=== PATIENT | female | born 1945 | race Two or more races ===

== ENCOUNTER 2025-01-06 13:18 | Emergency (ER) | payer BC, MEDICARE ==
[~2025-01-06] VITALS: Ht 167.6 cm; Wt 77.2 kg
[2025-01-06] MEDS: HYDROcodone-ACET 5/325MG TAB PO ONE (13:58)
--- NOTE | 2025-01-06 14:04 | ED.PDOC ---
Back pain HPI HPI Comments A 79 YEAR OLD FEMALE PRESENTS TO THE ED WITH A CHIEF COMPLAINT OF LOWER BACK PAIN THAT RADIATES DOWN HE RIGHT LEG S/P PICKING UP A COUPLE BOXES IN HER GARAGE WHILE CLEANING X1-2 DAYS AGO. PATIENT REPORTS A LONG STANDING HISTORY OF CHRONIC BACK PAIN WITH INTERMITTENT EPISODES DATING BACK MANY YEARS AGO. THE PATIENT DENIES ANY RECENT FALLS,BACK SURGERY, NUMBNESS, WEAKNESS, TINGLING SENSATION, URINARY/BOWEL INCONTINENCE. THERE ARE NO SIGNS AND SYMPTOMS OF CAUDA EQUINA. PATIENT DENIES FEVER, CHILLS, SHORTNESS OF BREATH, CHEST PAIN, ABDOMINAL PAIN, NAUSEA, VOMITING, HEADACHE, OR OTHER COMPLAINTS. NO OTHER SYMPTOMS OR MODIFYING FACTORS AT THIS TIME. PATIENT IS ALERT, ORIENTED X 4. PATIENT ARRIVES IN A WHE ELCHAIR DUE TO AN INABILITY TO BEAR WEIGHT OR AMBULATE SECONDARY TO THE BACK AND RIGHT LEG PAIN. Chief Complaint: Back Pain Time Seen by MD: 13:19 Reviewed Notes: Nurses Notes, Medications, Allergies Information Source: Patient Mode of Arrival: Wheelchair Timing: Days Duration: Since onset, Days Location of Back pain: (B) Lower back Radiates to: Posterior: (R) Buttocks, (R) Thigh Radiates to: Lateral: (R) Buttocks, (R) Thigh Severity: Moderate Prehospital treatment: None Quality: Aching, Cramping Onset: Bending, Lifing Circumstance: Other History of: Chronic Back Pain, None Modifying Factors: Movement, Walking, Nothing Associated signs and symptoms: None Past Medical History PAST MEDICAL HISTORY: Denies Past Medical History (Other): CHRONIC LOW BACK PAIN ON AND OFF Surgical History: Denies all surgeries HABITAT MANAGEMENT COORDINATOR History: No Pertinent HABITAT MANAGEMENT COORDINATOR History Family History Family History: Reviewed,noncontributory to illness, No family hx of Cancer, No family hx of DM, No family hx of Heart benjamin, No family hx of HTN, No family hx ofKidney benjamin, No family hx of Liver benjamin, No family hx of Lung benjamin, No family hx of Stroke Social History Smoker: Non-Smoker Alcohol: Denies ETOH Use Drugs: Denies Drug Use Lives In: Home Constitutional: denies: chills, diaphoresis, fatigue, fever, malaise, sweats, weakness, others EENTM: denies: blurred vision, double vision, ear bleeding, ear discharge, ear drainage, ear pain, ear ringing, eye pain, eye redness, hearing loss, mouth pain, mouth swelling, nasal discharge, nose bleeding, nose congestion, nose pain, photophobia, tearing, throat pain, throat swelling, voice changes, others Respiratory: denies: cough, hemoptysis, orthopnea, SOB at rest, shortness of breath, SOB with excertion, stridor, wheezing, others Cardiovascular: denies: chest pain, dizzy spells, diaphoresis, Dyspnea on exertion, edema, irregular heart beat, left arm pain, lightheadedness, palpitations, PND, syncope, others Gastrointestinal: denies: abdomen distended, abdominal pain, blood streaked bowels, constipated, diarrhea, dysphagia, difficulty swallowing, hematemesis, melena, nausea, poor appetite, poor fluid intake, rectal bleeding, rectal pain, vomiting, others Genitourinary: denies: abnormal vagina bleeding, burning, dyspareunia, dysuria, flank pain, frequency, hematuria, incontinence, pain, , vagina discharge, urgency, others Neurological: denies: dizziness, fainting, headache, left sided numbness, left sided weakness, numbness, paresthesia, pre-existing deficit, right sided numbness, right sided weakness, seizure, speech problems, tingling, tremors, weakness, others Musculoskeletal: reports: back pain, muscle pain; denies: gout, joint pain, joint swelling, muscle stiffness, neck pain, others Integumetry: denies: bruises, change in color, change in hair/nails, dryness, laceration, lesions, lumps, rash, wounds, others Allergic/Immunocompromised: denies: Difficulty Healing, Frequent Infections, Hives, Itching, others Hematologic/Lymphatic: denies: anemia, blood clots, easy bleeding, easy bruising, swollen glands, others Endocrine: denies: excessive hunger, excessive sweating, excessive thirst, excessive urination, flushing, intolerance to cold, intolerance to heat, unexplained weight gain, unexplained weight loss, others Psychiatric: denies: anxiety, bipolar disorder, depression, hopeless, panic disorder, schizophrenia, sleepless, suicidal, others All Other Systems: Reviewed and Negative Physical Exam General Appearance: No Apparent Distress, Normal HEENT: Normal ENT Inspection, PERRL/EOMI, Pharynx Normal, TMs Normal Neck: Full Range of Motion, Non-Tender, Normal, Normal Inspection Respiratory: Chest Non-Tender, Lungs Clear, No Accessory Muscle Use, No Respiratory Distress, Normal Breath Sounds Cardiovascular: No Edema, No JVD, No Murmur, No Gallop, Normal Peripheral Pulses, Regular Rate/Rhythm Breast Exam: Deferred Gastrointestinal: No Organomegaly, Non Tender, No Pulsatile Mass, Normal Bowel Sounds, Soft Genitalia: Deferred Pelvic: Deferred Rectal: Deferred Extremities: No calf tenderness, Normal capillary refill, Normal inspection, Normal range of motion, Non-tender, No pedal edema Musculoskeletal : Location: Bilateral Extremity Location: Back Apperance: Tenderness: Moderate (TENDERNESS AND MUSCLE SPASM ON LOW BACK, NO BONY TENDERNESS, SWELLING AND DEFORMITY, NO CVA TENDERNESS. 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 Was a procedure done?: No Back Pain Differential Dx Differential Diagnosis: DJD, Musculoskeletal Pain, Strain, Other (SPRAIN) X-Ray, Labs, Meds, VS Vital Signs Date Time Temp Pulse Resp B/P (MAP) Pulse Ox O2 Delivery O2 Flow Rate FiO2 01/06/25 13:19 98.4 89 16 134/83 97 98.4 Current Medications Medications (Trade) Dose Ordered Sig/Arik Route Start Time Stop Time Status Last Admin Acetaminophen/ Hydrocodone Bitart ([place]ndara 5/325MG Tab) 1 tab ONCE ONCE PO 01/06/25 13:45 01/06/25 13:46 DC 01/06/25 13:58 EXAM: CT LS SPINE WO CONTRAST HISTORY: LOWER BACK PAIN TO RIGHT LOWER LEG COMPARISON: None CTDIvol 28.94 mGy, DLP 899.61 mGy*cm. TECHNIQUE: Multiple axial CT images of the spine were obtained using bone algori thm. Axial and coronal reformatting was done. Bone and soft tissue windows were reviewed. FINDINGS: No evidence of definite acute fracture, spinal dislocation, or significant appearing acute subluxation is seen. Diffuse osteopenia. Diffuse advanced multilevel degenerative changes of the spine. Advanced degenerative changes at bilateral sacroiliac joints. Disc osteophyte hypertrophy creates moderate to severe canal stenosis at L2-L3, L3-L4 and L4-L5. IMPRESSION: No definite CT evidence of acute fracture or dislocation of the bony lumbar spine. X-Ray, Labs, Meds, VS Comment EXTERNAL MEDICAL RECORDS REVIEWED: [NONE] INDEPENDENT HISTORIANS: [NONE] SOCIAL DETERMINANTS OF HEALTH: [NONE] LABS ORDERED: NONE REVIEWED AND INTERPRETED RESULTS: NONE IMAGING ORDERED: CT L SPINE WO CON TREATMENTS ORDERED: NORCO 5/325MG PO PROCEDURES PERFORMED: NONE CRITICAL CARE TIME: NONE I HAVE DISCUSSED THE PATIENT WITH THE ATTENDING PHYSICIAN AND HE AGREES WITH THE PATIENT'S PLAN OF CARE AND DISPOSITION. RX: ULTRAM 50MG BASED ON THE PATIENT'S SYMPTOMS, THE PATIENT SOUGHT OUT ED CONSULT. ON MY PHYSICAL EXAMINATION REVEALED FINDINGS CONSISTENT WITH CHRONIC BACK PAIN FLARE UP. A CT OF THE LOWER LUMBAR SPINE WAS PERFORMED AND SHOWED TO ACUTE INJURY OR ABNORMALITIES. NO FURTHER IMAGING WAS INDICATED AT THIS TIME. THE PATIENT DENIES ANY NUMBNESS, WEAKNESS, TINGLING SENSATION, URINARY/BOWEL INCONTINENCE. THERE ARE NO SIGNS AND SYMPTOMS OF CAUDA EQUINA. THE PATIENT WAS ADVISED TO FOLLOW UP WITH PCP FOR THEIR CHRONIC LOWER BACK PAIN AND PAIN MANAGEMENT DOCTOR FOR PAIN CONTROL. PATIENT WAS GIVEN NORCO 5/325MG PO FOR PAIN MEDICATION. OVERALL PATIENT'S VITAL SIGNS ARE STABLE AND THE PATIENT WILL BE DISCHARGED HOME. Time of 1ST Reevaluation: 15:00 Reevaluation 1ST: Improved Patient Education/Counseling: Diagnosis, Treatment, Need For Follow Up Family Education/Counseling: Diagnosis, Treatment, Need For Follow Up, No Family Present Medical Screening: No EMC Exist At This Time SEPSIS Sepsis Screen Date sepsis recognized/suspect: Jan 06, 2025 Time Sepsis recognized/suspect: 1323 Recent Procedure: No On Antibiotic Therapy: No Respiratory Rate >20: No Heart Rate >90: No Temp<36 C (96.8 F) or >38.3 C: No SBP <90 or MAP <65 mmHG: No New Acute Mental Status Change: No Is the patient on CPAP, BIPAP,: No Physician Orders Ls Spine Wo Contrast (01/06/25 13:43) Vital Signs Date Time Temp Pulse Resp B/P (MAP) Pulse Ox O2 Delivery O2 Flow Rate FiO2 01/06/25 13:19 98.4 89 16 134/83 97 98.4 Medications Medications Dose Ordered Sig/Arik Route Start Time Stop Time Status Last Admin Dose Admin Acetaminophen/ Hydrocodone Bitart 1 tab ONCE ONCE PO 01/06/25 13:45 01/06/25 13:46 DC 01/06/25 13:58 Departure 1 Departure Time of Disposition: 15:00 Impression: Primary Impression: DDD (degenerative disc disease), lumbosacral Qualified Codes: M51.372 - Other intervertebral disc degeneration, lumbosacral region with discogenic back pain and lower extremity pain Additional Impression: Lumbar radiculopathy Disposition: HOME / SELF CARE / HOMELESS Condition: Stable Additional Instructions: FOLLOW-UP WITH PCP IN 1 TO 2 DAYS. TAKE MEDICATIONS PRESCRIBED. RETURN TO ED FOR ANY NEW OR WORSENING SYMPTOMS. e-Prescriptions Tramadol HCl (Tramadol HCl) 50 Mg Tab 50 MG PO BID, #20 TAB Prov: LILY LAGUNA 01/06/25 Discharged With: Self, Relative Critical Care Note Critical Care Time?: No Stability Stability form required: No I personally scribed for LILY LAGUNA ([email or web address]) on 01/06/25 at 14:04. Electronically submitted by Carolyne Ibrahim ([facility]). I personally scribed for LILY LAGUNA ([email or web address]) on 01/06/25 at 14:32. Electronically submitted by Carolyne Ibrahim ([facility]). LILY LAGUNA Jan 06, 2025 14:04
--- NOTE | 2025-01-06 14:26 | DVH ---
EXAM: CT LS SPINE WO CONTRAST HISTORY: LOWER BACK PAIN TO RIGHT LOWER LEG COMPARISON: None CTDIvol 28.94 mGy, DLP 899.61 mGy*cm. TECHNIQUE: Multiple axial CT images of the spine were obtained using bone algorithm. Axial and huber l reformatting was done. Bone and soft tissue windows were reviewed. FINDINGS: No evidence of definite acute fracture, spinal dislocation, or significant appearing acute subluxatio n is seen. Diffuse osteopenia. Diffuse advanced multilevel degenerative changes of the spine. Advanced degenerat kaylen changes at bilateral sacroiliac joints. Disc osteophyte hypertrophy creates moderate to severe canal stenosis at L2-L3, L3-L4 and L4-L5. IMPRESSION: No definite CT evidence of acute fracture or dislocation of the bony lumbar spine.
[2025-01-06] MEDS ORDERED: TRAM-626 PO (14:59)
[2025-01-06 15:16] VITALS: BP 131/64; PULSE 67; RESP 16; TEMP 97.9; O2SAT 94
== END 2025-01-06 15:19 | disposition home or self-care (01) ==
LOC: ER 13:22
DX: M51.370 Other intervertebral disc degeneration, lumbosacral region with discogenic back pain only (principal); G89.29 Other chronic pain; Z79.899 Other long term (current) drug therapy
CPT/HCPCS: 72131

== ENCOUNTER 2025-02-28 15:21 | Inpatient (IN) | payer MEDICARE, BC ==
[~2025-02-28] VITALS: Ht 167.6 cm; Wt 68.2 kg
[~2025-02-28 15:21] MED LIST: TRAM-626 PO
[2025-02-28 16:22] LABS: Urine Protein, UAD TRACE (Negative)
[2025-02-28 16:26] LABS: Hematocrit 37.0 % (36.0-46.0); Hemoglobin 12.5 g/dL (12.2-16.2); Mean Corpuscular Hemoglobin 31.7 pg (28.0-32.0); Mean Corpuscular Volume 93.6 fL (80.0-100.0); Nucleated Red Blood Cells % 0.1 %
[2025-02-28 16:46] LABS: Alanine Aminotransferase 22 U/L (7-40); Albumin 4.3 g/dL (3.2-4.8); Alkaline Phosphatase 87 U/L (46-116); Anion Gap 10 (5-15); BUN/Creatinine Ratio 14.8 (10.0-20.0); Bilirubin, Total 1.1 mg/dL (0.2-1.0); Blood Urea Nitrogen 16 mg/dL (9-23); Calcium 9.2 mg/dL (8.7-10.4); Carbon Dioxide 27 mmol/L (20-31); Chloride 96 mmol/L (98-107); Glucose 176 mg/dL (74-106); Potassium 3.8 mmol/L (3.5-5.1); Sodium 133 mmol/L (136-145); Total Protein 7.6 g/dL (5.7-8.2)
--- NOTE | 2025-02-28 16:49 | ECG ---
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
--- NOTE | 2025-02-28 16:54 | DVH ---
CLINICAL HISTORY: Mental status change. TECHNIQUE: Helical scanning was performed of the head from the skull base to the vertex. Multiplanar reconstructions were performed. This exam was performed according to our departmental dose optimizat ion program. Up-to-date CT equipment and radiation dose reduction techniques are utilized as appropri ate. CTDI 50.2 DLP 756 COMPARISON: None FINDINGS: There is no evidence for acute intracranial hemorrhage, acute ischemic changes, mass, mass effect, or extra-axial fluid collection. There is no hydrocephalus or midline shift. There is no effacement of the cerebral sulci and basal subarachnoid cisterns. The felipe-white matter differentiation is well lily ntained. The imaged paranasal sinuses are clear. IMPRESSION: NO ACUTE INTRACRANIAL ABNORMALITY SEEN.
[2025-02-28] MEDS: KETOROLAC TROMETH 30 MG/ML 1ML VIAL IM ONE (18:50)
--- NOTE | 2025-02-28 19:10 | ED.PDOC ---
Altered Mental Status HPI Comments Patient was brought in by son. Son was called by the patient's significant other. Patient has been acting funny today. Patient was recently being treated for urinary tract infection. Patient states she was having burning with urination last night and continued today. Son states that patient has been slow to respond. She is still answering questions appropriately but has a delayed response. They called primary care doctor and she was prescribed a new antibiotic but she has not started yet. Chief Complaint: ALOC Time Seen by MD: 15:25 Reviewed Notes: Nurses Notes Allergies: Coded Allergies: NO KNOWN ALLERGIES (Unverified , 02/28/25) Home Meds Active Scripts Tramadol HCl (Tramadol HCl) 50 Mg Tab, 50 MG PO BID, #20 TAB Prov:LILY LAGUNA 01/06/25 Information Source: Patient, Relative (Child) Mode of Arrival: Wheelchair Past Medical History PAST MEDICAL HISTORY: Denies Surgical History: Denies all surgeries SHALE PLANER OPERATOR History: No Pertinent SHALE PLANER OPERATOR History Family History Family History: Reviewed,noncontributory to illness, No family hx of Cancer, No family hx of DM, No family hx of Heart benjamin, No family hx of HTN, No family hx ofKidney benjamin, No family hx of Liver benjamin, No family hx of Lung benjamin, No family hx of Stroke Social History Smoker: Non-Smoker Alcohol: Denies ETOH Use Drugs: Denies Drug Use Lives In: Home Constitutional: denies: chills, diaphoresis, fatigue, fever, malaise, sweats, weakness, others EENTM: denies: blurred vision, double vision, ear bleeding, ear discharge, ear drainage, ear pain, ear ringing, eye pain, eye redness, hearing loss, mouth pain, mouth swelling, nasal discharge, nose bleeding, nose congestion, nose pain, photophobia, tearing, throat pain, throat swelling, voice changes, others Respiratory: denies: cough, hemoptysis, orthopnea, SOB at rest, shortness of breath, SOB with excertion, stridor, wheezing, others Cardiovascular: denies: chest pain, dizzy spells, diaphoresis, Dyspnea on exertion, edema, irregular heart beat, left arm pain, lightheadedness, palpitations, PND, syncope, others Gastrointestinal: denies: abdomen distended, abdominal pain, blood streaked bowels, constipated, diarrhea, dysphagia, difficulty swallowing, hematemesis, melena, nausea, poor appetite, poor fluid intake, rectal bleeding, rectal pain, vomiting, others Genitourinary: denies: abnormal vagina bleeding, burning, dyspareunia, dysuria, flank pain, frequency, hematuria, incontinence, pain, , vagina discharge, urgency, others Neurological: denies: dizziness, fainting, headache, left sided numbness, left sided weakness, numbness, paresthesia, pre-existing deficit, right sided numbness, right sided weakness, seizure, speech problems, tingling, tremors, weakness, others Musculoskeletal: denies: back pain, gout, joint pain, joint swelling, muscle pain, muscle stiffness, neck pain, others Integumetry: denies: bruises, change in color, change in hair/nails, dryness, laceration, lesions, lumps, rash, wounds, others Allergic/Immunocompromised: denies: Difficulty Healing, Frequent Infections, Hives, Itching, others Hematologic/Lymphatic: denies: anemia, blood clots, easy bleeding, easy bruising, swollen glands, others Physical Exam General Appearance: No Apparent Distress, Normal HEENT: Normal ENT Inspection, Pharynx Normal, TMs Normal Neck: Full Range of Motion, Non-Tender, Normal, Normal Inspection Respiratory: Chest Non-Tender, Lungs Clear, No Accessory Muscle Use, No Respiratory Distress, Normal Breath Sounds Cardiovascular: No Edema, No JVD, No Murmur, No Gallop, Normal Peripheral Puls es, Regular Rate/Rhythm Breast Exam: Deferred Gastrointestinal: No Organomegaly, Non Tender, No Pulsatile Mass, Normal Bowel Sounds, Soft Genitalia: Deferred Pelvic: Deferred Rectal: Deferred Extremities: No calf tenderness, Normal capillary refill, Normal inspection, Normal range of motion, Non-tender, No pedal edema Musculoskeletal : Apperance: Normal Neurologic: Alert, email engineer II-XII nml as Tested, No Motor Deficits, Normal Affect, Normal Mood, No Sensory Deficits Cerebellar Function: Normal Reflexes: Normal Skin: Dry, Normal Color, Warm Lymphatic: No Adenopathy Was a procedure done? Was a procedure done?: No Differential Diagnosis (ALOC) Differential Diagnosis: Dehydration, Hypoglycemia, Meningitis, Sepsis, Closed Head Injury, CVA X-Ray, Labs, Meds, VS Vital Signs Date Time Temp Pulse Resp B/P (MAP) Pulse Ox O2 Delivery O2 Flow Rate FiO2 02/28/25 18:52 Room Air* 0 21 02/28/25 17:47 98.8 89 16 98/55 (69) 98 98.8 02/28/25 15:38 124 02/28/25 15:24 97.7 123 17 98/63 93 97.7 Lab Test 02/28/25 16:56 02/28/25 16:00 02/28/25 15:51 Range/Units Lactic Acid Level 2.0 0.4-2.0 mmol/L White Blood Count 15.3 H 4.4-10.8 10^3/uL Red Blood Count 3.95 L 4.0-5.20 10^6/uL Hemoglobin 12.5 12.2-16.2 g/dL Hematocrit 37.0 36.0-46.0 % Mean Corpuscular Volume 93.6 80.0-100.0 fL Mean Corpuscular Hemoglobin 31.7 28.0-32.0 pg Mean Corpuscular Hemoglobin Concent 33.9 32.0-36.0 g/dL Red Cell Distribution Width 13.6 11.8-14.3 % Platelet Count 319 140-450 10^3/uL Mean Platelet Volume 7.8 6.9-10.8 fL Neutrophils (%) (Auto) 87.7 H 37.0-80.0 % Lymphocytes (%) (Auto) 6.5 L 10.0-50.0 % Monocytes (%) (Auto) 5.7 0.0-12.0 % Eosinophils (%) (Auto) 0.0 0.0-7.0 % Basophils (%) (Auto) 0.1 0.0-2.0 % Neutrophils # (Auto) 13.4 H 1.6-8.6 10 ^3/uL Lymphocytes # (Auto) 1.0 0.4-5.4 10 ^3/uL Monocytes # (Auto) 0.9 0-1.3 10 ^3/uL Eosinophils # (Auto) 0 0-0.8 10 ^3/uL Basophils # (Auto) 0 0-0.2 10 ^3/uL Nucleated Red Blood Cells 0.1 % Sodium Level 133 L 136-145 mmol/L Potassium Level 3.8 3.5-5.1 mmol/L Chloride Level 96 L 98-107 mmol/L Carbon Dioxide Level 27 20-31 mmol/L Anion Gap 10 5-15 Blood Urea Nitrogen 16 9-23 mg/dL Creatinine 1.08 H 0.550-1.02 mg/dL Glomerular Filtration Rate Calc 53 >90 mL/min BUN/Creatinine Ratio 14.8 10.0-20.0 Serum Glucose 176 H 74-106 mg/dL Calcium Level 9.2 8.7-10.4 mg/dL Total Bilirubin 1.1 H 0.2-1.0 mg/dL Aspartate Amino Transferase (AST) 21 13-40 U/L Alanine Aminotransferase (ALT) 22 7-40 U/L Alkaline Phosphatase 87 46-116 U/L Total Protein 7.6 5.7-8.2 g/dL Albumin 4.3 3.2-4.8 g/dL Urine Color Light-yellow Yellow Urine Clarity Turbid H Clear Urine pH 6.5 5.0-9.0 Urine Specific [place] 1.016 1.001-1.035 Urine Protein Trace H Negative Urine Ketones Negative Negative Urine Blood Trace H Negative /uL Urine Nitrite Negative Negative Urine Bilirubin Negative Negative Urine Urobilinogen Normal Negative mg/dL Urine Leukocyte Esterase 3+ Negative /uL Urine RBC 7 0 - 4 /hpf Urine Microscopic WBC 408 H 0-5 /HPF Urine Squamous Epithelial Cells Few <5 /hpf Urine Bacteria Few H None Seen /hpf Urine Glucose Trace Normal mg/dL Current Medications Medications (Trade) Dose Ordered Sig/Arik Route Start Time Stop Time Status Last Admin Ketorolac Tromethamine (Toradol Injection) 30 mg ONCE ONCE IM 02/28/25 18:45 02/28/25 18:46 DC 02/28/25 18:50 X-Ray, Labs, Meds, VS Comment Patient will be admitted for complicated urinary tract infection, failed outpatient treatment Patient be started on Rocephin 1 g Patient given Toradol IM for pain control Time of 1ST Reevaluation: 19:09 Reevaluation 1ST: Unchanged Patient Education/Counseling: Diagnosis, Treatment Family Education/Counseling: Diagnosis, Treatment SEPSIS Sepsis Screen Date sepsis recognized/suspect: Feb 28, 2025 Time Sepsis recognized/suspect: 1853 Recent Procedure: No On Antibiotic Therapy: No Respiratory Rate >20: No Heart Rate >90: No Temp<36 C (96.8 F) or >38.3 C: No SBP <90 or MAP <65 mmHG: No New Acute Mental Status Change: No Is the patient on CPAP, BIPAP,: No Physician Orders Head Without Contrast (02/28/25 15:51) Blood Culture (02/28/25 16:39) Vital Signs Date Time Temp Pulse Resp B/P (MAP) Pulse Ox O2 Delivery O2 Flow Rate FiO2 02/28/25 18:52 Room Air* 0 21 02/28/25 17:47 98.8 89 16 98/55 (69) 98 98.8 02/28/25 15:38 124 02/28/25 15:24 97.7 123 17 98/63 93 97.7 Laboratory Tests Test 02/28/25 16:00 02/28/25 16:56 White Blood Count 15.3 10^3/uL (4.4-10.8) H Lactic Acid Level 2.0 mmol/L (0.4-2.0) Medications Medications Dose Ordered Sig/Arik Route Start Time Stop Time Status Last Admin Dose Admin Ketorolac Tromethamine 30 mg ONCE ONCE IM 02/28/25 18:45 02/28/25 18:46 DC 02/28/25 18:50 Departure 1 Departure Time of Disposition: 19:09 Impression: Primary Impression: Altered mental status Qualified Codes: R40.0 - Somnolence Additional Impression: Urinary tract infection Qualified Codes: N30.01 - Acute cystitis with hematuria Disposition: ADMITTED INPATIENT Condition: Stable Discharged With: Self Critical Care Note Critical Care Time?: No Stability Stability form required: No Heart Score Heart Score: Heart Score Response (Comments) Value History N/A 0 EKG N/A 0 Age N/A 0 Risk Factors N/A 0 Troponin N/A 0 Total 0 PATRICIA WOODARD Feb 28, 2025 19:10
[2025-02-28] MEDS: SODIUM CHLORIDE 0.9% 500 ML IV ONE (22:00)
[2025-02-28] MEDS ORDERED: ACETAMINOPHEN 325 MG TAB PO PRN (22:00)
--- NOTE | 2025-02-28 22:12 | DVHHPRES ---
History of Present Illness Resident Creating Document: REINALDO AMBRIZ History of Present Illness Ms. Curry is a 79-year-old female with prior medical history of type 2 diabetes mellitus, hyperlipidemia, MIRIAN, cataracts, and ovarian cancer treated 20 years ago, who presents today accompanied by her son, Michael, with chief complaint of disorientation. According to the patient's son,the patient has been disoriented for the last week. He states she has been speaking slower and is harder for her to comprehend information than what is normal for this patient. The patient states she has also had decrease in appetite in the last week. Additionally, she refers that for the last 2 weeks had dysuria associated with a constant sharp stabbing pain in the her suprapubic area, non-radiating, 9/10 intensity, with mild relief with the use of hot pads. The patient was seen at the ED on 02/12/2025, where she was diagnosed with a UTI and discharged home on the same day with oral antibiotics (Nitrofurantoin). Due to persistence of symptoms and disorientation, she sought care at the ED. On evaluation in the ED, the patient was afebrile, tachycardic, and hypotensive. Initial labs are significant for WBCs 15.3 with neutrophilia, hyponatremia, creatinine 1.08, hyperglycemia, total bilirubin 1.1, and UA suggestive of UTI. Head CT shows no acute intracranial abnormality. Chest x-ray shows no acute abnormality. The patient start IV pain medication, IV antibiotics, and IV fluids. She was admitted for further workup and monitoring. Cardiovascular: hyperipidemia, Other (MIRIAN) Renal/: Other (History of ovarian cancer) Endocrine: Diabetes Past Surgical History: Tubal Ligation Family History: None Smoke: <1 pack per day (Occasional cigarette use quit 37 years ago) ALCOHOL: none Drugs: None Lives: with Family Domestic Violence: Neg Review of Systems Review of Systems Constitutional: Refers decreased appetite and malaise, Denies weight loss, fever and chills. HEENT: Denies changes in vision and hearing. Respiratory: Denies shortness of breath and cough Cardiovascular: Denies chest discomfort or palpitations GI: Denies abdominal distention, abdominal pain, diarrhea : Refers dysuria, urinary frequency, and suprapubic pain Musculoskeletal: Denies symptoms Skin: Denies rash and pruritus. Neurological: denies dizziness headache vision or hearing problems Allergies: Coded Allergies: NO KNOWN ALLERGIES (Unverified , 02/28/25) Medications Current Medications Medications Dose Ordered Sig/Arik Route Start Time Stop Time Status Last Admin Dose Admin Acetaminophen 325 mg Q4HP PRN PO 02/28/25 22:00 Enoxaparin Sodium 40 mg DAILY SC 03/01/25 10:00 Cefepime HCl 50 ml @ 12.5 mls/hr Q12HR IV 03/01/25 10:00 Meropenem 50 ml @ 17 mls/hr Q8HR IV 03/01/25 06:00 UNV Exam Vital Signs Vital Signs Date Time Temp Pulse Resp B/P (MAP) Pulse Ox O2 Delivery O2 Flow Rate FiO2 02/28/25 18:52 Room Air* 0 21 02/28/25 17:47 98.8 89 16 98/55 (69) 98 98.8 Exam General: The patient alert and oriented in person, place, not in time. Patient following commands HEENT: Normocephalic, atraumatic, normal reactive pupils, EOM intact, pink conjunctiva, pink dry mucous membrane Respiratory/pulmonary: Bilateral chest expansion, no pain on palpation of chest wall, clear lungs bilaterally, vesicular murmurs present in almost all lung martinez, no associated crackles or wheezes. Cardiovascular: Normal RRR, normal S1 and S2, no murmurs Abdomen: Abdomen nondistended, normal bowel sounds, soft, pain on palpation of suprapubic region, no palpable masses. Extremities: No deformities, there is no peripheral edema present at the lower extremities, normal pulses Skin: No rashes or pruritus, there is no sacral edema present at this time. Neurological: Intact cranial nerves with no focal neurologic deficits Labs/Xrays Labs Test 02/28/25 16:56 02/28/25 16:00 02/28/25 15:51 Range/Units Lactic Acid Level 2.0 0.4-2.0 mmol/L White Blood Count 15.3 H 4.4-10.8 10^3/uL Red Blood Count 3.95 L 4.0-5.20 10^6/uL Hemoglobin 12.5 12.2-16.2 g/dL Hematocrit 37.0 36.0-46.0 % Mean Corpuscular Volume 93.6 80.0-100.0 fL Mean Corpuscular Hemoglobin 31.7 28.0-32.0 pg Mean Corpuscular Hemoglobin Concent 33.9 32.0-36.0 g/dL Red Cell Distribution Width 13.6 11.8-14.3 % Platelet Count 319 140-450 10^3/uL Mean Platelet Volume 7.8 6.9-10.8 fL Neutrophils (%) (Auto) 87.7 H 37.0-80.0 % Lymphocytes (%) (Auto) 6.5 L 10.0-50.0 % Monocytes (%) (Auto) 5.7 0.0-12.0 % Eosinophils (%) (Auto) 0.0 0.0-7.0 % Basophils (%) (Auto) 0.1 0.0-2.0 % Neutrophils # (Auto) 13.4 H 1.6-8.6 10 ^3/uL Lymphocytes # (Auto) 1.0 0.4-5.4 10 ^3/uL Monocytes # (Auto) 0.9 0-1.3 10 ^3/uL Eosinophils # (Auto) 0 0-0.8 10 ^3/uL Basophils # (Auto) 0 0-0.2 10 ^3/uL Nucleated Red Blood Cells 0.1 % Sodium Level 133 L 136-145 mmol/L Potassium Level 3.8 3.5-5.1 mmol/L Chloride Level 96 L 98-107 mmol/L Carbon Dioxide Level 27 20-31 mmol/L Anion Gap 10 5-15 Blood Urea Nitrogen 16 9-23 mg/dL Creatinine 1.08 H 0.550-1.02 mg/dL Glomerular Filtration Rate Calc 53 >90 mL/min BUN/Creatinine Ratio 14.8 10.0-20.0 Serum Glucose 176 H 74-106 mg/dL Calcium Level 9.2 8.7-10.4 mg/dL Total Bilirubin 1.1 H 0.2-1.0 mg/dL Aspartate Amino Transferase (AST) 21 13-40 U/L Alanine Aminotransferase (ALT) 22 7-40 U/L Alkaline Phosphatase 87 46-116 U/L Total Protein 7.6 5.7-8.2 g/dL Albumin 4.3 3.2-4.8 g/dL Urine Color Light-yellow Yellow Urine Clarity Turbid H Clear Urine pH 6.5 5.0-9.0 Urine Specific [place] 1.016 1.001-1.035 Urine Protein Trace H Negative Urine Ketones Negative Negative Urine Blood Trace H Negative /uL Urine Nitrite Negative Negative Urine Bilirubin Negative Negative Urine Urobilinogen Normal Negative mg/dL Urine Leukocyte Esterase 3+ Negative /uL Urine RBC 7 0 - 4 /hpf Urine Microscopic WBC 408 H 0-5 /HPF Urine Squamous Epithelial Cells Few <5 /hpf Urine Bacteria Few H None Seen /hpf Urine Glucose Trace Normal mg/dL SEPSIS Sepsis Screen Date sepsis recognized/suspect: Feb 28, 2025 Time Sepsis recognized/suspect: 1853 Recent Procedure: No On Antibiotic Therapy: No Respiratory Rate >20: No Heart Rate >90: No Temp<36 C (96.8 F) or >38.3 C: No SBP <90 or MAP <65 mmHG: No New Acute Mental Status Change: No Is the patient on CPAP, BIPAP,: No Physician Orders Head Without Contrast (02/28/25 15:51) Blood Culture (02/28/25 16:39) Magnesium (02/28/25 21:55) Urine Bacterial Culture (02/28/25 21:55) Phosphorus (02/28/25 21:55) Thyroid Stimulating Hormone (02/28/25 21:55) Vitamin B12 (02/28/25 21:55) Vitamin D, 25-Hydroxy (02/28/25 21:55) Admit (02/28/25 21:55) Allergies (02/28/25 21:55) Code Status (02/28/25 21:55) Acetaminophen Tablet (Tylenol Tablet) (02/28/25 22:00) Enoxaparin Sodium (Lovenox) (03/01/25 10:00) Fall Risk Precautions In Place QSHIFT (02/28/25 21:55) Complete Blood Count (03/01/25 04:00) Comprehensive Metabolic Panel (03/01/25 04:00) Condition: Stable (02/28/25 21:55) Bedside Commode (02/28/25 21:55) Stat Ekg For Chest Pain (02/28/25 21:55) Notify Md Of Changes From Base (02/28/25 21:55) Emergency Dysrhythmia Protocol (02/28/25 21:55) Rhythm Strips Once Every Shift (02/28/25 21:55) Sodium Chloride 0.9% (02/28/25 22:00) Hemoglobin A1c (02/28/25 21:59) Cefepime 1gm/50ml (Maxipime 1gm/50ml) (03/01/25 10:00) Chest Xray 1 View (02/28/25 22:05) Meropenem 1gm Ivpb (Merrem 1gm/50ml) (03/01/25 06:00) Electrocardigram (02/28/25 22:08) NS (02/28/25 22:15) Vital Signs Date Time Temp Pulse Resp B/P (MAP) Pulse Ox O2 Delivery O2 Flow Rate FiO2 02/28/25 18:52 Room Air* 0 21 02/28/25 17:47 98.8 89 16 98/55 (69) 98 98.8 02/28/25 15:38 124 02/28/25 15:24 97.7 123 17 98/63 93 97.7 Laboratory Tests Test 02/28/25 16:00 02/28/25 16:56 White Blood Count 15.3 10^3/uL (4.4-10.8) H Lactic Acid Level 2.0 mmol/L (0.4-2.0) Medications Medications Dose Ordered Sig/Arik Route Start Time Stop Time Status Last Admin Dose Admin Ceftriaxone Sodium 50 ml @ 100 mls/hr ONCE ONCE IV 02/28/25 19:15 02/28/25 19:44 DC 02/28/25 19:53 100 MLS/HR Ketorolac Tromethamine 30 mg ONCE ONCE IM 02/28/25 18:45 02/28/25 18:46 DC 02/28/25 18:50 30 MG Assessment/Plan Assessment/Plan Assessment and Plan: Sepsis secondary to complicated UTI Dehydration secondary to above - Ceftriaxone 1 g IV once - Meropenem 1 g IV q.8 hours - NS 500 cc bolus once - NS maintenance fluids 75 cc/hour - Urine culture and blood cultures have been ordered - Ketorolac 30 mg IM once - Acetaminophen 325 mg p.o. q.4 hours PRN Possible DREW on CKD likely due to VMN/hemodynamically mediated - IV fluids - Avoid nephrotoxic drugs - Monitor renal function Mild hyponatremia, likely due to hypovolemia - Monitor sodium levels Type 2 diabetes mellitus, HB A1c 6.1 - Mild SSI - Accu-Cheks - Consistent Carbohydrate diet Hyperlipidemia History of ovarian cancer s/p treatment years ago Diet: Consistent carbohydrate DVT prophylaxis: Enoxaparin 40 mg SC daily GI prophylaxis: Not indicated Case discussed with Dr. Dunn Goals of care discussed with the patient and her son, Michael, for over 25 minutes. Full code. Plan discussed with: Patient, Son, Other (Nurses) My Orders Orders - REINALDO AMBRIZ RESIDENT Procedure Category Date Status Time Magnesium LAB 02/28/25 In Process 21:55 Urine Bacterial LADONNA 02/28/25 In Process Culture 21:55 Phosphorus LAB 02/28/25 In Process 21:55 Thyroid Stimulating LAB 02/28/25 In Process Hormone 21:55 Vitamin B12 LAB 02/28/25 In Process 21:55 Vitamin D, 25-Hydroxy LAB 02/28/25 In Process 21:55 Admit ADMIT 02/28/25 Transmitted 21:55 Allergies NAT 02/28/25 In Process 21:55 Code Status CODE 02/28/25 Transmitted 21:55 Acetaminophen Tablet PHA 02/28/25 In Process (Tylenol Tablet) 22:00 Enoxaparin Sodium PHA 03/01/25 In Process (Lovenox) 10:00 Fall Risk Precautions NAT 02/28/[address] 21:55 Complete Blood Count LAB 03/01/25 Verified 04:00 Comprehensive LAB 03/01/25 Verified Metabolic Panel 04:00 Condition: Stable NAT 02/28/25 In Process 21:55 Bedside Commode NAT 02/28/25 In Process 21:55 Stat Ekg For Chest NAT 02/28/25 In Process Pain 21:55 Notify Md Of Changes [facility] 02/28/25 In Process From Base 21:55 Emergency Dysrhythmia NAT 02/28/25 In Process Protocol 21:55 Rhythm Strips Once NAT 02/28/25 In Process Every Shift 21:55 Sodium Chloride 0.9% PHA 02/28/25 In Process 22:00 Hemoglobin A1c LAB 02/28/25 In Process 21:59 Cefepime 1gm/50ml PHA 03/01/25 In Process (Maxipime 1gm/50ml) 10:00 Chest Xray 1 View XY 02/28/25 Logged 22:05 Date of Service: Feb 28, 2025 Billing Provider: TERRANCE CHAMBERS MD Common Visit Codes: [id number] INP/OBS CARE (HIGH) Secondary Visit Codes: [id number] CARE PLAN 30 MINUTES AMBRIZ,[place] RESIDENT Feb 28, 2025 22:12 JITENDRA ESCOBAR RESIDENT Mar 01, 2025 04:25
--- NOTE | 2025-02-28 22:43 | DVH ---
CHEST RADIOGRAPH Indication: Possible Aspiration Technique: Single frontal view of the chest was obtained Comparison: None FINDINGS/IMPRESSION: The lungs are clear. The cardiomediastinal silhouette is unremarkable. No pleural effusion or pneumo thorax. No acute osseous abnormality.
[2025-02-28 23:23] LABS: Magnesium 1.8 mg/dL (1.6-2.6)
[2025-02-28] MEDS: SODIUM CHLORIDE 0.9% 1,000 ML IV SCH (23:49)
[2025-03-01] MEDS: HYDROcodone-ACET 5/325MG TAB PO ONE (02:46)
[2025-03-01] MEDS ORDERED: DEXTROSE (50%) 50ML SYRG IV PRN (03:15)
[2025-03-01 05:00] VITALS: BP 112/66; PULSE 77; RESP 19; TEMP 98.4; O2SAT 93
[2025-03-01] MEDS: ACCU-CHEK COMFORT CURVE STRIP VI SCH (06:18)
[2025-03-01] MEDS: InsuLIN REG 1unit/0.01ml Soln (100units/ml) SC SCH (06:19)
[2025-03-01 06:49] LABS: Hematocrit 31.4 % (36.0-46.0); Hemoglobin 10.6 g/dL (12.2-16.2); Mean Corpuscular Hemoglobin 31.5 pg (28.0-32.0); Mean Corpuscular Volume 93.6 fL (80.0-100.0); Nucleated Red Blood Cells % 0.0 %
[2025-03-01 07:17] LABS: Alanine Aminotransferase 18 U/L (7-40); Albumin 3.4 g/dL (3.2-4.8); Alkaline Phosphatase 69 U/L (46-116); Anion Gap 9 (5-15); BUN/Creatinine Ratio 16.2 (10.0-20.0); Blood Urea Nitrogen 16 mg/dL (9-23); Carbon Dioxide 25 mmol/L (20-31); Chloride 101 mmol/L (98-107); Potassium 3.6 mmol/L (3.5-5.1); Total Protein 6.0 g/dL (5.7-8.2); Triglycerides 83 mg/dL (< 150)
[2025-03-01 07:18] LABS: Bilirubin, Total 0.7 mg/dL (0.2-1.0); Cholesterol 125 mg/dL (< 200); HDL Cholesterol 49 mg/dL (40-59)
[2025-03-01 07:19] LABS: Calcium 8.6 mg/dL (8.7-10.4); Glucose 107 mg/dL (74-106); Sodium 135 mmol/L (136-145)
[2025-03-01 08:00] VITALS: PULSE 75; RESP 16; O2SAT 97
[2025-03-01 08:39] VITALS: BP 124/73; PULSE 75; RESP 16; TEMP 98.1; O2SAT 97
[2025-03-01] MEDS: ENOXAPARIN SOD 40 MG/0.4 ML SYRINGE SC SCH (09:23)
[2025-03-01] MEDS: MEROPENEM 1GM IVPB 50 ML IV SCH (09:23)
[2025-03-01] MEDS ORDERED: CEFEPIME 1GM/50ML 50 ML IV SCH (10:00)
--- NOTE | 2025-03-01 11:07 | DVHPNRES ---
Progress Note Date Seen: Mar 01, 2025 Resident Creating Document: SOLO PICKARD RESIDENT Medical Necessity Reason Pt with a Central, PICC or Fol: No Subjective Review of Systems Ms. Curry is a 79-year-old female with prior medical history of type 2 diabetes mellitus, hyperlipidemia, MIRIAN, cataracts, and ovarian cancer treated 20 years ago, who presents today accompanied by her son, Michael, with chief complaint of disorientation. According to the patient's son,the patient has been disoriented for the last week. He states she has been speaking slower and is harder for her to comprehend information than what is normal for this patient. The patient states she has also had decrease in appetite in the last week. Additionally, she refers that for the last 2 weeks had dysuria associated with a constant sharp stabbing pain in the her suprapubic area, non-radiating, 9/10 intensity, with mild relief with the use of hot pads. The patient was seen at the ED on 02/12/2025, where she was diagnosed with a UTI and discharged home on the same day with oral antibiotics (Nitrofurantoin). Due to persistence of symptoms and disorientation, she sought care at the ED. On evaluation in the ED, the patient was afebrile, tachycardic, and hypotensive. Initial labs are significant for WBCs 15.3 with neutrophilia, hyponatremia, creatinine 1.08, hyperglycemia, total bilirubin 1.1, and UA suggestive of UTI. Head CT shows no acute intracranial abnormality. Chest x-ray shows no acute abnormality. The patient start IV pain medication, IV antibiotics, and IV fluids. She was admitted for further workup and monitoring. Cardiovascular: hyperipidemia, Other (MRIIAN) Renal/: Other (History of ovarian cancer) Endocrine: Diabetes Past Surgical History: Tubal Ligation Family History: None Personal history Smoke: <1 pack per day (Occasional cigarette use quit 37 years ago), ALCOHOL: none, Drugs: None, Lives: with Family, Domestic Violence: Neg Patient was seen today at bedside, labs and chart reviewed. Patient reports feeling better today, patient reported poor appetite. Pain improved. WBC trending down, pending uterine culture. Patient on meropenem IV. Objective vital signs Vital Sign Date Time Temp Pulse Resp B/P (MAP) Pulse Ox O2 Delivery O2 Flow Rate FiO2 03/01/25 08:39 98.1 75 16 124/73 (90) 97 98.1 03/01/25 01:28 Room Air* 0 21 Total Intake and Output 02/28/25 02/28/25 03/01/25 15:00 23:00 07:00 Intake Total 600 ml Balance 600 ml medications Current Medications Medications Dose Ordered Sig/Arik Route Start Time Stop Time Status Last Admin Dose Admin Acetaminophen 325 mg Q4HP PRN PO 02/28/25 22:00 Enoxaparin Sodium 40 mg DAILY SC 03/01/25 10:00 03/01/25 09:23 40 MG Cefepime HCl 50 ml @ 12.5 mls/hr Q12HR IV 03/01/25 10:00 Hold Meropenem 50 ml @ 17 mls/hr Q8H IV 03/01/25 09:00 03/01/25 09:23 17 MLS/HR Sodium Chloride 1,000 ml @ 75 mls/hr [id number] IV 02/28/25 22:15 02/28/25 23:49 75 MLS/HR Diagnostic Test (Pha) 1 strip ACHS 03/01/25 07:00 03/01/25 06:18 1 STRIP Insulin Human Regular ACHS SC 03/01/25 07:00 Dextrose 50 ml UD PRN IV 03/01/25 03:15 Examination General examination- awake, alert, current meds HEENT- PEERLA, no acute nasal discharge Cardiovascular- S1-S2 audible, rate and rhythm regular, no murmur Respiratory- CTAB, no wheeze or rhonchi Gastrointestinal-mild lower abdominal tenderness+, bowel sound+. Nondistended Renal system-bilateral renal angle tenderness+ Musculoskeletal-no acute joint swelling or tenderness or redness Lower extremity- no leg edema Neurological- cranial nerves intact, no acute dysarthria or dysphagia Psychiatry- denies depression or SI or HI Skin- no acute rash or purpura laboratory and microbiology Laboratory Tests 03/01/25 06:07 Test 03/01/25 06:07 Range/Units Serum Glucose 107 H 74-106 mg/dL Problem List/Assessment/Plan Problem List/Assessment/Plan Assessment and plan # acute metabolic encephalopathy likely due to sepsis #Sepsis secondary to complicated UTI #Dehydration secondary to above -continue IV normal saline as per - Meropenem 1 g IV q.8 hours -pending blood culture, urine culture Monitor vital #Possible DREW on CKD likely due to VMN/hemodynamically mediated - IV fluids - Avoid nephrotoxic drugs - Monitor renal function #Mild hyponatremia, likely due to hypovolemia - Monitor sodium levels #Type 2 diabetes mellitus, HB A1c 6.1 - Mild SSI - Accu-Cheks - Consistent Carbohydrate diet #Hyperlipidemia -diet controlled #History of ovarian cancer s/p treatment 20 years ago -follow up outpatient with the primary care physician Goals of care, Code status full code; discussed with >15 minutes PUD prophylaxis: Pantoprazole DVT prophylaxis: Lovenox Plan discussed with Dr. Gtz , nursing staff, Total time spent on patient evaluation, chart review, assessment and plan, discussion discussion >35 minutes Plan discussed with: Patient, Other (RN) My Orders My Orders Orders - SOLO PICKARD Procedure Category Date Status Time Sodium Chloride 0.9% PHA 03/01/25 Logged 10:45 Billing Provider: CONCEPCION GTZ MD Common Visit Codes: [id number] INP/OBS CARE(HIGH) SOLO PICKARD Mar 01, 2025 11:07 CONCEPCION GTZ MD Mar 01, 2025 22:14
[2025-03-01 13:00] VITALS: BP 120/66; PULSE 70; RESP 16; TEMP 98; O2SAT 97
[2025-03-01] MEDS: SODIUM CHLORIDE 0.9% 1,000 ML IV ONE ×2 (13:15→17:11)
[2025-03-01 16:54] VITALS: BP 117/77; PULSE 83; RESP 17; TEMP 97.9; O2SAT 97
[2025-03-01] MEDS: HYDROcodone-ACET 5/325MG TAB PO PRN (17:11)
[2025-03-01 21:00] VITALS: BP_SYST 110; BP_SYST 95; BP_DIAS 52; BP_DIAS 57; PULSE 79; PULSE 84; RESP 16; RESP 18; TEMP 97.8; TEMP 98.2; O2SAT 94; O2SAT 95
[2025-03-02] VITALS (7 sets, daily range): BP systolic 130–155; BP diastolic 58–85; PULSE 70–87; RESP 16–18; TEMP 97.7–98; O2SAT 95–97
[2025-03-02] MEDS: PANTOPRAZOLE 40 MG TAB PO SCH (05:03)
[2025-03-02 06:48] LABS: Hematocrit 30.6 % (36.0-46.0); Hemoglobin 10.4 g/dL (12.2-16.2); Mean Corpuscular Hemoglobin 31.8 pg (28.0-32.0); Mean Corpuscular Volume 93.4 fL (80.0-100.0); Nucleated Red Blood Cells % 0.1 %
[2025-03-02 07:02] LABS: Alanine Aminotransferase 19 U/L (7-40); Albumin 3.3 g/dL (3.2-4.8); Alkaline Phosphatase 62 U/L (46-116); Anion Gap 9 (5-15); BUN/Creatinine Ratio 12.0 (10.0-20.0); Blood Urea Nitrogen 9 mg/dL (9-23); Carbon Dioxide 25 mmol/L (20-31); Magnesium 1.9 mg/dL (1.6-2.6); Sodium 141 mmol/L (136-145); Total Protein 5.9 g/dL (5.7-8.2)
[2025-03-02 07:03] LABS: Bilirubin, Total 0.3 mg/dL (0.2-1.0)
[2025-03-02 07:09] LABS: Calcium 8.2 mg/dL (8.7-10.4); Chloride 107 mmol/L (98-107); Glucose 110 mg/dL (74-106); Potassium 3.5 mmol/L (3.5-5.1)
--- NOTE | 2025-03-02 11:57 | DVHPNRES ---
Progress Note Date Seen: Mar 02, 2025 Resident Creating Document: SOLO PICKARD RESIDENT Medical Necessity Reason Pt with a Central, PICC or Fol: No Subjective Review of Systems Ms. Curry is a 79-year-old female with prior medical history of type 2 diabetes mellitus, hyperlipidemia, MIRIAN, cataracts, and ovarian cancer treated 20 years ago, who presents today accompanied by her son, Michael, with chief complaint of disorientation. According to the patient's son,the patient has been disoriented for the last week. He states she has been speaking slower and is harder for her to comprehend information than what is normal for this patient. The patient states she has also had decrease in appetite in the last week. Additionally, she refers that for the last 2 weeks had dysuria associated with a constant sharp stabbing pain in the her suprapubic area, non-radiating, 9/10 intensity, with mild relief with the use of hot pads. The patient was seen at the ED on 02/12/2025, where she was diagnosed with a UTI and discharged home on the same day with oral antibiotics (Nitrofurantoin). Due to persistence of symptoms and disorientation, she sought care at the ED. On evaluation in the ED, the patient was afebrile, tachycardic, and hypotensive. Initial labs are significant for WBCs 15.3 with neutrophilia, hyponatremia, creatinine 1.08, hyperglycemia, total bilirubin 1.1, and UA suggestive of UTI. Head CT shows no acute intracranial abnormality. Chest x-ray shows no acute abnormality. The patient start IV pain medication, IV antibiotics, and IV fluids. She was admitted for further workup and monitoring. Cardiovascular: hyperipidemia, Other (MIRIAN) Renal/: Other (History of ovarian cancer) Endocrine: Diabetes Past Surgical History: Tubal Ligation Family History: None Personal history Smoke: <1 pack per day (Occasional cigarette use quit 37 years ago), ALCOHOL: none, Drugs: None, Lives: with Family, Domestic Violence: Neg Patient was seen today at bedside, labs and chart reviewed. Patient had suprapubic distention, Bedside bladder scan revealed post voiding residual volume> 300, ordered Dumont's catheter. Urine culture mixed growth. Continue current medication. Leukocytosis resolved. Objective vital signs Vital Sign Date Time Temp Pulse Resp B/P (MAP) Pulse Ox O2 Delivery O2 Flow Rate FiO2 10/2/25 08:47 97.9 71 16 139/70 (93) 97 97.9 03/02/25 08:00 Room Air* 0 21 Total Intake and Output 03/01/25 03/01/25 03/02/25 15:00 23:00 07:00 Intake Total 50 ml 450 ml 1350 ml Output Total 750 ml Balance 50 ml 450 ml 600 ml medications Current Medications Medications Dose Ordered Sig/Arik Route Start Time Stop Time Status Last Admin Dose Admin Acetaminophen 325 mg Q4HP PRN PO 02/28/25 22:00 Enoxaparin Sodium 40 mg DAILY SC 03/01/25 10:00 03/02/25 09:27 40 MG Meropenem 50 ml @ 17 mls/hr Q8H IV 03/01/25 09:00 03/02/25 09:27 17 MLS/HR Sodium Chloride 1,000 ml @ 75 mls/hr [id number] IV 02/28/25 22:15 03/02/25 01:57 75 MLS/HR Diagnostic Test (Pha) 1 strip ACHS 03/01/25 07:00 03/02/25 06:17 1 STRIP Insulin Human Regular ACHS SC 03/01/25 07:00 Dextrose 50 ml UD PRN IV 03/01/25 03:15 Pantoprazole Sodium 40 mg DAILY@0600 PO 03/02/25 06:00 03/02/25 05:03 40 MG Acetaminophen/ Hydrocodone Bitart 1 tab Q4HPRN PRN PO 03/01/25 15:30 03/02/25 09:28 1 TAB Examination General examination- awake, alert, current meds HEENT- PEERLA, no acute nasal discharge Cardiovascular- S1-S2 audible, rate and rhythm regular, no murmur Respiratory- CTAB, no wheeze or rhonchi Gastrointestinal-mild lower abdominal tenderness+, bowel sound+. Nondistended Renal system-bilateral renal angle tenderness+ Musculoskeletal-no acute joint swelling or tenderness or redness Lower extremity- no leg edema Neurological- cranial nerves intact, no acute dysarthria or dysphagia Psychiatry- denies depression or SI or HI Skin- no acute rash or purpura laboratory and microbiology Laboratory Tests 03/02/25 06:29 Test 03/02/25 06:29 Range/Units Serum Glucose 110 H 74-106 mg/dL Microbiology Date/Time Source Procedure Growth Status 02/28/25 16:50 Blood Blood Culture - Preliminary NO GROWTH AFTER 24 HOURS OF INCUBATION. Resulted 02/28/25 15:51 Voided Urine Urine Culture - Preliminary Resulted Problem List/Assessment/Plan Problem List/Assessment/Plan Assessment and plan # acute metabolic encephalopathy likely due to sepsis #Sepsis secondary to complicated UTI #Dehydration secondary to above -continue IV normal saline as per - Meropenem 1 g IV q.8 hours -pending blood culture, urine culture Monitor vital # DREW on CKD likely due to VMN/hemodynamically mediated - IV fluids - Avoid nephrotoxic drugs - Monitor renal function # acute retention of urine -bedside bladder scan revealed> 300 mL urine -ordered Dumont's catheter #Mild hyponatremia, likely due to hypovolemia - Monitor sodium levels #Type 2 diabetes mellitus, HB A1c 6.1 - Mild SSI - Accu-Cheks - Consistent Carbohydrate diet #Hyperlipidemia -diet controlled #History of ovarian cancer s/p treatment 20 years ago -follow up outpatient with the primary care physician Goals of care, Code status full code; discussed with >15 minutes PUD prophylaxis: Pantoprazole DVT prophylaxis: Lovenox Plan discussed with Dr. Case , nursing staff, Total time spent on patient evaluation, chart review, assessment and plan, discussion discussion >35 minutes Plan discussed with: Patient, Other (RN) My Orders My Orders Orders - SOLO PICKARD Procedure Category Date Status Time Hydrocodone-Acet PHA 03/01/25 In Process 5/325mg Tab ([place] 15:30 Date of Service: Mar 02, 2025 Billing Provider: CONCEPCION CASE MD Common Visit Codes: [id number] INP/OBS CARE(HIGH) SOLO PICKARD Mar 02, 2025 11:57 CONCEPCION CASE MD Mar 03, 2025 19:54
[2025-03-03 01:00] VITALS: BP 147/78; PULSE 79; RESP 18; TEMP 98.1; O2SAT 94
[2025-03-03 04:58] LABS: Hematocrit 34.0 % (36.0-46.0); Hemoglobin 11.4 g/dL (12.2-16.2); Mean Corpuscular Hemoglobin 31.5 pg (28.0-32.0); Mean Corpuscular Volume 93.6 fL (80.0-100.0); Nucleated Red Blood Cells % 0.0 %
[2025-03-03 05:00] VITALS: BP 146/73; PULSE 66; RESP 18; TEMP 98; O2SAT 96
[2025-03-03 05:23] LABS: Alanine Aminotransferase 16 U/L (7-40); Albumin 3.7 g/dL (3.2-4.8); Alkaline Phosphatase 67 U/L (46-116); Anion Gap 9 (5-15); BUN/Creatinine Ratio 6.5 (10.0-20.0); Blood Urea Nitrogen < 5 mg/dL (9-23); Calcium 9.0 mg/dL (8.7-10.4); Carbon Dioxide 27 mmol/L (20-31); Chloride 104 mmol/L (98-107); Glucose 106 mg/dL (74-106); Magnesium 2.0 mg/dL (1.6-2.6); Potassium 3.7 mmol/L (3.5-5.1); Sodium 140 mmol/L (136-145); Total Protein 6.6 g/dL (5.7-8.2)
[2025-03-03 05:24] LABS: Bilirubin, Total 0.4 mg/dL (0.2-1.0)
[2025-03-03 08:00] VITALS: PULSE 67; RESP 18; O2SAT 97
[2025-03-03 09:00] VITALS: BP 149/85; PULSE 67; RESP 18; TEMP 98.2; O2SAT 97
[2025-03-03 13:00] VITALS: BP 156/79; PULSE 18; TEMP 97.2; O2SAT 96
--- NOTE | 2025-03-03 14:08 | DVHDSRES ---
Discharge Summary Date of Admission Resident Creating Document: SOLO PICKARD RESIDENT Feb 28, 2025 at 21:55 Date of Discharge: Mar 03, 2025 Admitting Diagnosis Acute metabolic encephalopathy, Sepsis due to UTI Labs/Diagnostic Data: Laboratory Results Test 03/03/25 10:43 03/03/25 04:30 03/01/25 11:02 03/01/25 06:07 POC Glucose 141 mg/dl (70-106) White Blood Count 5.8 10^3/uL (4.4-10.8) Red Blood Count 3.63 10^6/uL (4.0-5.20) Hemoglobin 11.4 g/dL (12.2-16.2) Hematocrit 34.0 % (36.0-46.0) Mean Corpuscular Volume 93.6 fL (80.0-100.0) Mean Corpuscular Hemoglobin 31.5 pg (28.0-32.0) Mean Corpuscular Hemoglobin Concent 33.6 g/dL (32.0-36.0) Red Cell Distribution Width 13.7 % (11.8-14.3) Platelet Count 295 10^3/uL (140-450) Mean Platelet Volume 7.3 fL (6.9-10.8) Neutrophils (%) (Auto) 61.5 % (37.0-80.0) Lymphocytes (%) (Auto) 26.8 % (10.0-50.0) Monocytes (%) (Auto) 10.0 % (0.0-12.0) Eosinophils (%) (Auto) 1.5 % (0.0-7.0) Basophils (%) (Auto) 0.2 % (0.0-2.0) Neutrophils # (Auto) 3.6 10 ^3/uL (1.6-8.6) Lymphocytes # (Auto) 1.6 10 ^3/uL (0.4-5.4) Monocytes # (Auto) 0.6 10 ^3/uL (0-1.3) Eosinophils # (Auto) 0.1 10 ^3/uL (0-0.8) Basophils # (Auto) 0 10 ^3/uL (0-0.2) Nucleated Red Blood Cells 0.0 % Sodium Level 140 mmol/L (136-145) Potassium Level 3.7 mmol/L (3.5-5.1) Chloride Level 104 mmol/L (98-107) Carbon Dioxide Level 27 mmol/L (20-31) Anion Gap 9 (5-15) Blood Urea Nitrogen < 5 mg/dL (9-23) Creatinine 0.77 mg/dL (0.550-1.02) Glomerular Filtration Rate Calc 79 mL/min (>90) BUN/Creatinine Ratio 6.5 (10.0-20.0) Serum Glucose 106 mg/dL (74-106) Calcium Level 9.0 mg/dL (8.7-10.4) Magnesium Level 2.0 mg/dL (1.6-2.6) Total Bilirubin 0.4 mg/dL (0.2-1.0) Aspartate Amino Transferase (AST) 14 U/L (13-40) Alanine Aminotransferase (ALT) 16 U/L (7-40) Alkaline Phosphatase 67 U/L (46-116) Total Protein 6.6 g/dL (5.7-8.2) Albumin 3.7 g/dL (3.2-4.8) Lactic Acid Level 1.0 mmol/L (0.4-2.0) Triglycerides Level 83 mg/dL (< 150) Cholesterol Level 125 mg/dL (< 200) LDL Cholesterol 64 mg/dL (< 100) HDL Cholesterol 49 mg/dL (40-59) Test 02/28/25 16:00 02/28/25 15:51 Hemoglobin A1c 6.1 % A1C (<5.7) Phosphorus Level 2.7 mg/dL (2.4-5.1) Vitamin B12 Level 277 pg/mL (211-911) Vitamin D 25-Hydroxy 29.0 ng/mL (30.0-100) Thyroid Stimulating Hormone (TSH) 0.76 uIU/mL (0.55-4.78) Urine Color Light-yellow (Yellow) Urine Clarity Turbid (Clear) Urine pH 6.5 (5.0-9.0) Urine Specific [place] 1.016 (1.001-1.035) Urine Protein Trace (Negative) Urine Ketones Negative (Negative) Urine Blood Trace /uL (Negative) Urine Nitrite Negative (Negative) Urine Bilirubin Negative (Negative) Urine Urobilinogen Normal mg/dL (Negative) Urine Leukocyte Esterase 3+ /uL (Negative) Urine RBC 7 /hpf (0 - 4) Urine Microscopic WBC 408 /HPF (0-5) Urine Squamous Epithelial Cells Few /hpf (<5) Urine Bacteria Few /hpf (None Seen) Urine Glucose Trace mg/dL (Normal) Other Laboratory Tests 03/03/25 04:30 Brief Hx & Hospital Course: Ms. Curry is a 79-year-old female with prior medical history of type 2 diabetes mellitus, hyperlipidemia, MIRIAN, cataracts, and ovarian cancer treated 20 years ago, who presents today accompanied by her son, Michael, with chief complaint of disorientation. According to the patient's son,the patient has been disoriented for the last week. He states she has been speaking slower and is harder for her to comprehend information than what is normal for this patient. The patient states she has also had decrease in appetite in the last week. Additionally, she refers that for the last 2 weeks had dysuria associated with a constant sharp stabbing pain in the her suprapubic area, non-radiating, 9/10 intensity, with mild relief with the use of hot pads. The patient was seen at the ED on 02/12/2025, where she was diagnosed with a UTI and discharged home on the same day with oral antibiotics (Nitrofurantoin). Due to persistence of symptoms and disorientation, she sought care at the ED. On evaluation in the ED, the patient was afebrile, tachycardic, and hypotensive. Initial labs are significant for WBCs 15.3 with neutrophilia, hyponatremia, creatinine 1.08, hyperglycemia, total bilirubin 1.1, and UA suggestive of UTI. Head CT shows no acute intracranial abnormality. Chest x-ray shows no acute abnormality. Patient was treated with the IV antibiotic meropenem, uterine culture more than 3 organisms, blood culture negative, patient's symptoms improved. Patient's hospital course was complicated by acute retention of uterine, status post Dumont's catheter. Before discharge patient has Dumont's catheter was removed and patient voided well, bedside bladder scan revealed only 1 mL of uterine. Patient is being discharged home with oral antibiotic Keflex 500 mg p.o. b.i.d. for 5 days, patient was advised to follow up with the primary care physician in 1 week, patient was also advised to follow up with the discharge clinic on Thursday03/06/2025. Patient was was advised to follow up with the urologist for further evaluation and care of retention of uterine. Patient was hemodynamically stable on discharge. Patient's meds were sent to the pharmacy electronically. Operations or Procedures [address] [address] Ph: [phone] DIAGNOSTIC IMAGING Diagnostic Imaging Report : [id number] Signed PATIENT: NORRIS CURRY ACCT: [id number] UNIT: [id number] : 1945 LOC: ER ROOM / BED: / AGE / SEX: 79 / F ADM STATUS: REG ER SERVICE 1551 ORDERING PHYSICIAN: PATRICIA WOODARD PROCEDURE(s): HWOCT - HEAD WITHOUT CONTRAST REASON: ALOC ORDER NUMBER(s): [id number], ACCESSION NUMBER(s): [id number] CLINICAL HISTORY: Mental status change. TECHNIQUE: Helical scanning was performed of the head from the skull base to the vertex. Multiplanar reconstructions were performed. This exam was performed according to our departmental dose optimization program. Up-to-date CT equipment and radiation dose reduction techniques are utilized as appropriate. CTDI 50.2 DLP 756 COMPARISON: None FINDINGS: There is no evidence for acute intracranial hemorrhage, acute ischemic changes, mass, mass effect, or extra-axial fluid collection. There is no hydrocephalus or midline shift. There is no effacement of the cerebral sulci and basal subarachnoid cisterns. The felipe-white matter differentiation is well maintained. The imaged paranasal sinuses are clear. IMPRESSION: NO ACUTE INTRACRANIAL ABNORMALITY SEEN. ATED BY: ABRAM FENTON MD DICTATED DATE/TIME: 02/28/251651 SIGNED BY: ABRAM FENTON MD SIGNED DATE/TIME: 02/28/251651 CC: [facility] [id number] [place] [id number] Ph: [phone] DIAGNOSTIC IMAGING Diagnostic Imaging Report : [id number] Signed PATIENT: NORRIS CURRY ACCT: [id number] UNIT: [id number] : 1945 LOC: OVERFLOW ROOM / BED: 1011-ER / A AGE / SEX: 79 / F ADM STATUS: ADM IN SERVICE 04 ORDERING PHYSICIAN: REINALDO AMBRIZ PROCEDURE(s): CXR1 - CHEST XRAY 1 VIEW REASON: Possible Aspiration ORDER NUMBER(s): [id number], ACCESSION NUMBER(s): [id number] CHEST RADIOGRAPH Indication: Possible Aspiration Technique: Single frontal view of the chest was obtained Comparison: None FINDINGS/IMPRESSION: The lungs are clear. The cardiomediastinal silhouette is unremarkable. No pleural effusion or pneumothorax. No acute osseous abnormality. ATED BY: GABRIEL TRENT MD DICTATED DATE/TIME: 02/28/252240 SIGNED BY: GABRIEL TRENT MD SIGNED DATE/TIME: 02/28/252240 CC: Condition at Discharge: Stable Final Diagnosis/Problems List # acute metabolic encephalopathy likely due to sepsis #Sepsis secondary to complicated UTI #Dehydration secondary to above # DREW on CKD likely due to VMN/hemodynamically mediated # acute retention of urine #Mild hyponatremia, likely due to hypovolemia #Type 2 diabetes mellitus, HB A1c 6.1 #Hyperlipidemia #History of ovarian cancer s/p treatment 20 years ago Discharge Disposition: Home Discharge Instruct/Medications Diet: Consistent carbohydrate, Cardiac 2g Na,low cholest Activity: No Restrictions, As Tolerated Follow Up/Referral: Please follow up with the discharge clinic on Thursday03/06/25 Please follow up with the primary care physician in 1-2 weeks Please follow up with the urologist in 1-2 weeks for further evaluation and care of retention of uterine Scheduled Cephalexin (Keflex Capsule), 2 CAP PO BID Tramadol HCl (Tramadol HCl), 50 MG PO BID Discharge Statement: "Patient was advised to return to the ER or call 911 if any headaches, dizziness, shortness of breath, chest pain, abdominal pain, bleeding, fevers, or worsening of medical condition. Patient was counseled about treatment plan, medications, possible side effects, patientverbalized understanding. All questions were answered to the best of my ability. This discharge took greater then 30 minutes in planning, reviewing documentation, counseling the patient, and discussing with other team members." ASSESSMENT ASSESSMENT Assessment Date of Service: Mar 03, 2025 Billing Provider: CONCEPCION GTZ MD Common Visit Codes: 73289-JMS/OBS DISCH DAY >30min SOLO PICKARD RESIDENT Mar 03, 2025 14:08 CONCEPCION GTZ MD Mar 03, 2025 19:56
[2025-03-03] MEDS ORDERED: CEPH250C PO (14:29)
[2025-03-03 15:11] VITALS: BP 156/79; PULSE 78; RESP 18; TEMP 97.2; O2SAT 96
== END 2025-03-03 15:44 | disposition home or self-care (01) | DRG 871 ==
LOC: ER 15:21 → OVERFLOW 21:55 → EAST 23:53
PROVIDERS: ADMIT Student in an Organized Health Care Education/Training Program; ATTEND Student in an Organized Health Care Education/Training Program
DX: A41.9 Sepsis, unspecified organism (principal); G93.41 Metabolic encephalopathy; N17.0 Acute kidney failure with tubular necrosis; E87.1 Hypo-osmolality and hyponatremia; N39.0 Urinary tract infection, site not specified; E86.1 Hypovolemia; E86.0 Dehydration; E78.5 Hyperlipidemia, unspecified; R33.9 Retention of urine, unspecified; E11.22 Type 2 diabetes mellitus with diabetic chronic kidney disease; N18.9 Chronic kidney disease, unspecified; Z85.43 Personal history of malignant neoplasm of ovary; Z79.899 Other long term (current) drug therapy
CPT/HCPCS: 36415; 70450; 71045; 80053; 80061; 81001; 82306; 82607; 82962; 83036; 83605; 83735; 84100; 84443; 85025; 87040; 87086; 93005; 96365; G0378; J1885; J2185